=== PATIENT | male | born 1990 ===

== ENCOUNTER 2021-06-09 08:15 | Emergency (ER) | payer SELFPAY ==
[2021-06-09 08:34] VITALS: BP 122/86
== END 2021-06-09 13:36 | disposition left against medical advice (07) ==
LOC: ED 08:15
DX: R10.9 Unspecified abdominal pain (principal); Z53.21 Procedure and treatment not carried out due to patient leaving prior to being seen by health care provider

== ENCOUNTER 2021-10-20 08:57 | Emergency (ER) | payer SELFPAY ==
[2021-10-20 09:40] VITALS: BP 128/84
== END 2021-10-20 11:00 | disposition left against medical advice (07) ==
LOC: ED 08:57
DX: J30.2 Other seasonal allergic rhinitis (principal); Z53.21 Procedure and treatment not carried out due to patient leaving prior to being seen by health care provider